=== PATIENT | female | born 1995 | race Caucasian/White ===

== ENCOUNTER 2016-03-25 19:12 | Inpatient (IN) | payer BC ==
[~2016-03-25] VITALS: Ht 160 cm; Wt 100.5 kg
[2016-03-25] VITALS (13 sets, daily range): BP systolic 77–141; BP diastolic 44–92
[2016-03-25] MEDS ORDERED: ceFAZolin 2,000 MG in SODIUM CHLORIDE VIAL (PF) 20 ML IV SCH (19:25)
[2016-03-25] MEDS ORDERED: SODIUM CHLORIDE FLUSH 10 ML SYR IV PRN (19:25)
[2016-03-25] MEDS ORDERED: SODIUM CHLORIDE FLUSH 3 ML SYR IV PRN (19:25)
[2016-03-25] MEDS ORDERED: SODIUM CHLORIDE FLUSH 10 ML ONE (19:35)
[2016-03-25 20:59] LABS: MEAN CORPUSCULAR HGB CONC 32.8 g/dL (31.0-37.0); MEAN PLATELET VOLUME 10.6 FL (6.0-9.5); WHITE BLOOD COUNT 12.74 10^3uL (4.0-11.0)
[2016-03-25 21:02] LABS: MEAN CORPUSCULAR HEMOGLOBIN 26.1 PG (26.0-34.0)
[2016-03-25] MEDS ORDERED: ROPIVACAINE 1% 10 MG/ML (NAROPIN) 20 ML AMPUL ONE (21:40)
[2016-03-25] MEDS ORDERED: morphine PF 0.5 MG/ML (DURAMORPH) 10 ML VIAL IV ONE (21:41)
[2016-03-25] MEDS ORDERED: diphenhydrAMINE 50 MG/ML INJ (BENADRYL) IM PRN (21:45)
[2016-03-25] MEDS ORDERED: ONDANSETRON 2 MG/ML (Z0FRAN) 2 ML VIAL IV PRN (21:45)
[2016-03-25] MEDS ORDERED: diphenhydrAMINE 50 MG/ML INJ (BENADRYL) IV PRN (21:45)
[2016-03-25] MEDS ORDERED: NALBUPHINE 10 MG/ML (NUBAIN) 1 ML AMP IV PRN ×2 (21:45)
[2016-03-25] MEDS ORDERED: diphenhydrAMINE 50 MG (BENADRYL) CAPSULE PO PRN (21:45)
[2016-03-25] MEDS ORDERED: POT BICARB/SOD BICARB/CIT AC (ALKA-SELTZER GOLD) 1 TABLET.EFF PO SCH (21:45)
[2016-03-25] MEDS ORDERED: diphenhydrAMINE 25 MG (BENADRYL) TABLET PO PRN (21:45)
[2016-03-25] MEDS ORDERED: METOCLOPRAMIDE 10 MG/2 ML (REGLAN) VIAL IV SCH (21:45)
[2016-03-25] MEDS ORDERED: NALOXONE 0.4 MG/ML (NARCAN) 1 ML VIAL IV PRN ×2 (21:45)
[2016-03-25] MEDS ORDERED: MIDAZOLAM 2 MG/2 ML (VERSED) VIAL ONE (22:25)
[2016-03-25] MEDS ORDERED: OXYTOCIN 10 UNIT/ML (PITOCIN) 1 ML VIAL ONE ×2 (22:27→23:23)
[2016-03-25 22:29] LABS: BILIRUBIN,URINE Negative (Negative); COLOR,URINE Yellow; GLUCOSE, URINE (UA) Negative (Negative); LEUKOCYTE ESTERASE, URINE Negative (Negative); UROBILINOGEN,URINE 0.2 mg/dL (0.2-1.0)
[2016-03-25 22:31] LABS: CLARITY,URINE Slightly Cloudy
[2016-03-25] MEDS ORDERED: M-M-R II (MEASLES,MUMPS,RUBELLA) VACCINE SC ONE (23:15)
[2016-03-25] MEDS ORDERED: LANOLIN OINTMENT 28 GM TUBE TOP PRN (23:15)
[2016-03-25] MEDS: OXYTOCIN INJ 20 UNIT in NS 1000ml 1,000 ML IV SCH (23:25)
[2016-03-26] VITALS (14 sets, daily range): BP systolic 88–138; BP diastolic 47–76
[2016-03-26] MEDS ORDERED: OXYTOCIN 10 UNIT/ML (PITOCIN) 1 ML VIAL ONE (02:41)
[2016-03-26] MEDS: OXYTOCIN INJ 20 UNIT in NS 1000ml 1,000 ML IV SCH (03:14)
--- NOTE | 2016-03-26 07:13 | NUR ---
report to dimitry noble rn
[2016-03-26 07:15] LABS: MEAN CORPUSCULAR HGB CONC 32.5 g/dL (31.0-37.0); MEAN PLATELET VOLUME 9.3 FL (6.0-9.5); WHITE BLOOD COUNT 11.09 10^3uL (4.0-11.0)
[2016-03-26 07:18] LABS: MEAN CORPUSCULAR HEMOGLOBIN 26.2 PG (26.0-34.0)
[2016-03-26] MEDS: IBUPROFEN 600 MG (MOTRIN) TAB PO PRN ×2 (10:27→22:55)
--- NOTE | 2016-03-26 10:30 | NUR ---
Called RT Adelina to report that Dr. Jolley had entered orders for an incentive spirometer for this pt.
[2016-03-26 10:51] LABS: INFLUENZA VIRUS TYPE A ANTIBOD Negative (NEGATIVE); INFLUENZA VIRUS TYPE B ANTIBOD Negative (NEGATIVE)
[2016-03-26] MEDS: DOCUSATE SODIUM 100 MG (COLACE) CAP PO SCH (21:40)
[2016-03-26] MEDS ORDERED: oxyCODONE/ACETAMINOPHEN 5MG-325 MG (PERCOCET) TABLET PO PRN (23:15)
[2016-03-27 08:30] VITALS: BP 134/79
[2016-03-27] MEDS: IBUPROFEN 600 MG (MOTRIN) TAB PO PRN ×2 (09:13→16:28)
[2016-03-27] MEDS: DOCUSATE SODIUM 100 MG (COLACE) CAP PO SCH (19:15)
[2016-03-27 21:00] VITALS: BP 128/84
--- NOTE | 2016-03-28 00:50 | NUR ---
REPORT TO Celestino GUERRIER RN
[2016-03-28] MEDS: IBUPROFEN 600 MG (MOTRIN) TAB PO PRN (06:04)
--- NOTE | 2016-03-28 09:15 | NUR ---
dismissal instructions reviewed with patient and , voices understanding, denies questions or concerns.
--- NOTE | 2016-03-28 09:30 | NUR ---
dismissed ambulatory to front exit accompanied by this RN and . stable condition
== END 2016-03-28 09:30 | disposition home or self-care (01) | DRG 766 ==
LOC: EUOP 19:12 → OB 19:13 → EUOP 19:36
PROVIDERS: ADMIT Obstetrics & Gynecology; ATTEND Obstetrics & Gynecology
PROC: 10D00Z1 Extraction of Products of Conception, Low, Open Approach (ICD-10-PCS; principal; 2016-03-25)
DX: O42.92 Full-term premature rupture of membranes, unspecified as to length of time between rupture and onset of labor (principal); O34.211 Maternal care for low transverse scar from previous cesarean delivery; Z3A.38 38 weeks gestation of pregnancy; Z37.0 Single live birth
CPT/HCPCS: 36415; 59510; 81003; 85027; 85610; 85730; 86850; 86900; 86901; 87502; 94762

== ENCOUNTER → 2016-06-20 | Outpatient (REF) | payer BC ==
[~2016-06-20] MED LIST: HYDR-3702 PO; ONDAN4ODT PO; PREN1COM PO
== END ==
LOC: LAB 10:17
PROVIDERS: ATTEND Obstetrics & Gynecology
DX: Z30.430 Encounter for insertion of intrauterine contraceptive device (principal)
CPT/HCPCS: 81025